=== PATIENT | female | born 1960 | race African-American/Black ===

== ENCOUNTER 2017-04-04 23:09 | Inpatient (IN) | payer MEDICAID ==
[~2017-04-04] VITALS: Ht 167.6 cm; Wt 140.2 kg
[~2017-04-04 23:09] MED LIST: ATEN50TA PO; CARI350T21 PO; CITA-73 PO; ESTR0.3T PO; IBUP800T24 PO; LISI-646 PO; LORA-352 PO; METF-316 PO; NAPR-607 PO; NOR10T PO; OMEP20TA44 PO; SIMV-13 PO; TRAZ50TA2 PO; ZOLP5TAB5 PO
[2017-04-05] MEDS ORDERED: SODIUM CHLORIDE 0.9% 1,000 ML IVB ONE (00:07)
[2017-04-05] MEDS ORDERED: ONDANSETRON HCL 4 MG/2 ML VIAL IV ONE ×2 (00:15→08:30)
[2017-04-05] MEDS ORDERED: LORazepam 2MG/ML-1ML VIAL IV ONE (01:00)
[2017-04-05] MEDS ORDERED: HYDROmorphone HCL 2 MG/ML VL IV ONE ×2 (01:45→09:15)
[2017-04-05] MEDS ORDERED: PROMETHAZINE HCL 25 MG/ML 1ML IV ONE (01:45)
[2017-04-05 01:57] LABS: Basophils # (auto) 0 uL; Basophils % (auto) 0.3 % (0.0-2.0); Eosinophils # (auto) 0.1 uL; Eosinophils % (auto) 0.8 % (0.0-7.0); Hematocrit 42.8 % (36.0-46.0); Hemoglobin 13.8 g/dL (12.2-16.2); Lymphocytes # (auto) 3.1 uL; Mean Corpuscular Hemoglobin 27.7 pg (28.0-32.0); Mean Corpuscular Hgb Conc. 32.2 g/dL (32.0-36.0); Mean Corpuscular Volume 85.9 fL (80.0-100.0); Mean Platelet Volume 9.5 fL (7.4-10.4); Monocytes # (auto) 0.3 uL; Monocytes % (auto) 2.8 % (0.0-12.0); Neutrophils # (auto) 6.6 uL; Neutrophils % (auto) 65.1 % (37.0-80.0); Platelet Count (auto) 240 10^3/uL (140-450); Red Cell Distribution Width 15.6 % (11.6-16.0); White Blood Cell 10.1 10^3/uL (4.4-10.8)
[2017-04-05 02:03] LABS: Urine Bilirubin Negative (Negative); Urine Blood TRACE /uL (Negative); Urine Color Yellow (Yellow); Urine Glucose Normal (Normal); Urine Ketone Negative (Negative); Urine Mucus FEW (None Seen); Urine Nitrite Negative (Negative); Urine RBC 5 /hpf (0 - 4); Urine Squamous Epithelial Cell FEW /hpf (<5); Urine Urobilinogen Normal (Negative)
[2017-04-05 02:11] LABS: INR 1.08 (0.9-1.15); Partial Thromboplastin Time 26.3 sec (22.64-33.71); Prothrombin Time 11.8 sec (9.37-12.3)
[2017-04-05 02:24] LABS: Albumin 3.4 g/dL (3.4-5.0); Anion Gap 12 (5-15); Aspartate Aminotransferase 43 U/L (15-37); BUN/Creatinine Ratio 14.3; Blood Urea Nitrogen 10 mg/dL (7-18); Calcium 9.1 mg/dL (8.5-10.1); Carbon Dioxide 25 mmol/L (21-32); Chloride 106 mmol/L (98-107); GFR African American 112 mL/min; GFR Non-African American 93 mL/min; Glucose 144 mg/dL (74-106); Magnesium 1.7 mg/dL (1.6-2.6); Potassium 3.8 mmol/L (3.5-5.1); Sodium 143 mmol/L (136-145)
[2017-04-05 02:29] LABS: Alkaline Phosphatase 183 U/L (45-117); Bilirubin, Total 0.4 mg/dL (0.2-1.0); Total Protein 7.8 g/dL (6.4-8.2)
[2017-04-05] MEDS ORDERED: ACETAMINOPHEN 500 MG TAB PO ONE (04:45)
[2017-04-05] MEDS ORDERED: SODIUM CHLORIDE 0.9% 1,000 ML IV ONE (08:36)
[2017-04-05] MEDS ORDERED: DIPHENOXYLATE W/ATROPINE 2.5 MG TAB PO ONE (08:45)
[2017-04-05] MEDS ORDERED: ONDANSETRON HCL 4 MG/2 ML VIAL IV PRN (08:45)
[2017-04-05] MEDS ORDERED: NITROGLYCERIN 0.4 MG SL TAB SL PRN (08:45)
[2017-04-05] MEDS ORDERED: TEMAZEPAM 15 MG CAP PO PRN (08:45)
[2017-04-05] MEDS ORDERED: ACETAMINOPHEN 325 MG TAB PO PRN (08:45)
[2017-04-05] MEDS ORDERED: MORPHINE SULF INJ 2 MG/ML SYRINGE 1ML IV PRN (08:45)
[2017-04-05] MEDS: MORPHINE SULF INJ 2 MG/ML SYRINGE 1ML IV PRN ×2 (08:58→12:43)
[2017-04-05] MEDS ORDERED: ZINC SULFATE 220 MG CAP PO SCH (10:00)
[2017-04-05] MEDS ORDERED: FAMOTIDINE 20 MG TAB PO SCH (10:00)
[2017-04-05] MEDS ORDERED: ENOXAPARIN SOD 30 MG/0.3 ML SYRINGE SC SCH (10:00)
[2017-04-05] MEDS ORDERED: ENOXAPARIN SOD 40 MG/0.4 ML SYRINGE SC SCH (10:00)
[2017-04-05] MEDS ORDERED: MULTIPLE VITAMIN TAB PO SCH (10:00)
[2017-04-05] MEDS ORDERED: ASCORBIC ACID 500 MG TAB PO SCH (10:00)
[2017-04-05 10:50] VITALS: BP 152/92
[2017-04-05 12:10] VITALS: BP 162/85
[2017-04-05] MEDS ORDERED: NALBUPHINE HCL 10 MG/1ml INJECTION IV ONE (13:15)
[2017-04-05] MEDS ORDERED: SODIUM CHLOR 0.9% PF (SALINE LOCK) 10ML VIAL IV SCH (14:00)
[2017-04-05] MEDS ORDERED: HYDROmorphone HCL 2 MG/ML VL IV PRN (14:15)
== END 2017-04-05 14:30 | disposition left against medical advice (07) | DRG 249 ==
LOC: ER 23:09 → EDSEX 23:09 → EDBD 23:09 → TELE 23:10 → TELE-EAST 04-05 11:02
PROVIDERS: ADMIT Emergency Medicine; ATTEND Emergency Medicine
DX: K52.9 Noninfective gastroenteritis and colitis, unspecified (principal); K76.0 Fatty (change of) liver, not elsewhere classified; I11.9 Hypertensive heart disease without heart failure; E66.01 Morbid (severe) obesity due to excess calories; D25.9 Leiomyoma of uterus, unspecified; R07.9 Chest pain, unspecified; E78.00 Pure hypercholesterolemia, unspecified; K40.20 Bilateral inguinal hernia, without obstruction or gangrene, not specified as recurrent; E78.5 Hyperlipidemia, unspecified; E11.9 Type 2 diabetes mellitus without complications; Z90.89 Acquired absence of other organs; Z82.49 Family history of ischemic heart disease and other diseases of the circulatory system; Z83.3 Family history of diabetes mellitus; Z88.1 Allergy status to other antibiotic agents; Z88.5 Allergy status to narcotic agent; Z88.8 Allergy status to other drugs, medicaments and biological substances; Z68.42 Body mass index [BMI] 45.0-49.9, adult
CPT/HCPCS: 36415; 51702; 71010; 74176; 80053; 80307; 81001; 83690; 83735; 84484; 85025; 85610; 85730; 87086; 93005; 93970; 96361; 96372; 96374; 96375; 96376; J2405

== ENCOUNTER 2023-10-24 23:01 | Inpatient (IN) | payer MEDICAID ==
[~2023-10-24] VITALS: Ht 172.7 cm; Wt 130.7 kg
[~2023-10-24 23:01] MED LIST changes: -CARI350T21 PO; +CARI350T27 PO; +IBUP-1456 PO; -IBUP800T24 PO; -LISI-646 PO; +LISI20TA56 PO; -LORA-352 PO; +LORA10TA6 PO; -METF-316 PO; +METF-372 PO; -NAPR-607 PO; +NAPR-746 PO; -SIMV-13 PO; +SIMV40TA18 PO; +TRAZ-227 PO; -TRAZ50TA2 PO
[2023-10-24 23:20] VITALS: PULSE 101; RESP 25; O2SAT 98
[2023-10-24 23:39] LABS: Basophils # (auto) 0 10 ^3/uL (0-0.2); Basophils % (auto) 0.4 % (0.0-2.0); Eosinophils # (auto) 0.2 10 ^3/uL (0-0.8); Eosinophils % (auto) 1.7 % (0.0-7.0); Hematocrit 29.8 % (36.0-46.0); Hemoglobin 8.9 g/dL (12.2-16.2); Lymphocytes # (auto) 2.5 10 ^3/uL (0.4-5.4); Lymphocytes % (auto) 24.4 % (10.0-50.0); Mean Corpuscular Hemoglobin 21.5 pg (28.0-32.0); Mean Corpuscular Hgb Conc. 29.9 g/dL (32.0-36.0); Mean Corpuscular Volume 71.7 fL (80.0-100.0); Monocytes # (auto) 0.8 10 ^3/uL (0-1.3); Monocytes % (auto) 7.6 % (0.0-12.0); Neutrophils # (auto) 6.7 10 ^3/uL (1.6-8.6); Neutrophils % (auto) 65.9 % (37.0-80.0); Red Blood Cells 4.15 10^6/uL (4.0-5.20); Red Cell Distribution Width 22.9 % (11.8-14.3); White Blood Cell 10.1 10^3/uL (4.4-10.8)
[2023-10-24] MEDS ORDERED: IPRATROPIUM BROM 0.5 MG/2.5ML INH SOL NEB ONE (23:45)
[2023-10-24] MEDS ORDERED: ALBUTEROL SULF 2.5 MG/0.5ML(0.5%) NEB SOLN NEB ONE (23:45)
[2023-10-24 23:53] LABS: INR 1.08 (0.9-1.15); Partial Thromboplastin Time 25.3 SEC (24.5-34.5); Prothrombin Time 11.3 sec (9.3-11.8)
[2023-10-24 23:57] LABS: Alanine Aminotransferase 16 U/L (7-40); Albumin 3.9 g/dL (3.2-4.8); Alkaline Phosphatase 175 U/L (46-116); Anion Gap 8 (5-15); Aspartate Aminotransferase 26 U/L (13-40); BUN/Creatinine Ratio 15.7 (10.0-20.0); Bilirubin, Total 0.6 mg/dL (0.2-1.0); Blood Urea Nitrogen 13 mg/dL (9-23); Calcium 8.4 mg/dL (8.7-10.4); Carbon Dioxide 26 mmol/L (20-30); Chloride 106 mmol/L (98-107); Glucose 136 mg/dL (74-106); Magnesium 1.7 mg/dL (1.6-2.6); Potassium 4.3 mmol/L (3.5-5.1); Sodium 140 mmol/L (136-145); Total Protein 6.6 g/dL (5.7-8.2)
[2023-10-25] VITALS (12 sets, daily range): BP systolic 132–140; BP diastolic 66–72; PULSE 94–110; RESP 18–22; TEMP 38.4; O2SAT 92–96
[2023-10-25 00:11] LABS: Base Excess 0.7 mmol/L (-2.0-2.0)
[2023-10-25] MEDS ORDERED: MORPHINE SULFATE 4 MG/ML SYR/VIAL IV ONE ×2 (01:15→03:30)
[2023-10-25] MEDS ORDERED: cefTRIAXone 1GM/50ML D5W 50 ML IV ONE (01:45)
[2023-10-25] MEDS ORDERED: AZITHROMYCIN 500MG/ 250ML 250 ML IV ONE (01:45)
[2023-10-25] MEDS ORDERED: FUROSEMIDE 40 MG/4 ML VIAL IV ONE (01:45)
[2023-10-25] MEDS ORDERED: HYDROmorphone HCL 2 MG/ML VL/or syr IV PRN (03:45)
[2023-10-25] MEDS ORDERED: NITROGLYCERIN 0.4 MG SL TAB SL PRN (03:45)
[2023-10-25] MEDS ORDERED: DEXTROSE (50%) 50ML SYRG IV PRN (03:45)
[2023-10-25] MEDS ORDERED: DOCUSATE SOD 100 MG CAP PO PRN (03:45)
[2023-10-25 03:51] LABS: Rapid Influenza A Negative (Negative); Rapid Influenza B Negative (Negative)
[2023-10-25 03:52] LABS: COVID19 ANTIGEN SOFIA FIA NEGATIVE (NEGATIVE)
[2023-10-25 04:39] LABS: Basophils # (auto) 0 10 ^3/uL (0-0.2); Basophils % (auto) 0.3 % (0.0-2.0); Eosinophils # (auto) 0 10 ^3/uL (0-0.8); Eosinophils % (auto) 0.4 % (0.0-7.0); Hematocrit 28.2 % (36.0-46.0); Hemoglobin 8.4 g/dL (12.2-16.2); Lymphocytes # (auto) 2.2 10 ^3/uL (0.4-5.4); Lymphocytes % (auto) 21.8 % (10.0-50.0); Mean Corpuscular Hemoglobin 21.7 pg (28.0-32.0); Mean Corpuscular Hgb Conc. 29.7 g/dL (32.0-36.0); Mean Corpuscular Volume 73.3 fL (80.0-100.0); Monocytes % (auto) 9.8 % (0.0-12.0); Neutrophils # (auto) 6.9 10 ^3/uL (1.6-8.6); Neutrophils % (auto) 67.7 % (37.0-80.0); Red Blood Cells 3.85 10^6/uL (4.0-5.20); White Blood Cell 10.2 10^3/uL (4.4-10.8)
[2023-10-25 04:40] LABS: Red Cell Distribution Width 23.1 % (11.8-14.3)
[2023-10-25 04:48] LABS: Alanine Aminotransferase 13 U/L (7-40); Albumin 3.8 g/dL (3.2-4.8); Alkaline Phosphatase 159 U/L (46-116); Anion Gap 6 (5-15); Aspartate Aminotransferase 18 U/L (13-40); Bilirubin, Total 0.6 mg/dL (0.2-1.0); Blood Urea Nitrogen 10 mg/dL (9-23); Calcium 8.5 mg/dL (8.7-10.4); Carbon Dioxide 27 mmol/L (20-30); Chloride 106 mmol/L (98-107); Glucose 123 mg/dL (74-106); Sodium 139 mmol/L (136-145); Total Protein 6.7 g/dL (5.7-8.2)
[2023-10-25] MEDS: SODIUM CHLOR 0.9% PF (SALINE LOCK) 10ML VIAL/SYR IV SCH ×3 (05:43→22:00)
[2023-10-25 06:00] LABS: Urine Bacteria NONE SEEN /hpf (None Seen); Urine Blood Negative /uL (Negative); Urine Clarity Clear (Clear); Urine Color Yellow (Yellow); Urine Protein, UAD Negative (Negative); Urine Specific Gravity 1.012 (1.001-1.035); Urine Urobilinogen Normal (Negative); Urine WBC <1 /hpf (0 - 5); Urine pH 5.5 (5.0-8.0)
[2023-10-25] MEDS: ACCU-CHEK COMFORT CURVE STRIP VI SCH ×4 (06:38→22:00)
[2023-10-25] MEDS: InsuLIN REG 1unit/0.01ml Soln (100units/ml) SC SCH ×4 (06:38→22:00)
[2023-10-25] MEDS: ACETAMINOPHEN 325 MG TAB PO PRN ×2 (08:23→22:35)
[2023-10-25] MEDS ORDERED: AZITHROMYCIN 500MG/ 250ML 250 ML IV SCH (10:00)
[2023-10-25] MEDS: FUROSEMIDE 40 MG/4 ML VIAL IV SCH (11:09)
[2023-10-25] MEDS: ENOXAPARIN SOD 40 MG/0.4 ML SYRINGE SC SCH (11:10)
[2023-10-25] MEDS ORDERED: AMLO1TAB22 PO (11:23)
[2023-10-25] MEDS: GABAPENTIN 400 MG CAP PO SCH ×2 (13:41→22:35)
[2023-10-25] MEDS: PIPERACILLIN-TAZOB 3.375GM 100 ML IV SCH ×2 (13:41→22:36)
[2023-10-25] MEDS ORDERED: IOHEXOL 350 MG/ML 100ML IJ ONE (13:54)
[2023-10-25] MEDS: HYDROmorphone HCL 2 MG/ML VL/or syr IV PRN ×3 (14:40→22:40)
[2023-10-25] MEDS: CARISOPRODOL 350 MG TAB PO PRN (16:29)
[2023-10-25] MEDS: MORPHINE SULF 30 mg ER tab PO SCH (22:36)
[2023-10-26] VITALS (11 sets, daily range): BP systolic 132–147; BP diastolic 60–84; PULSE 99–109; RESP 18–24; TEMP 98.4–99.8; O2SAT 92–98
[2023-10-26] MEDS: HYDROmorphone HCL 2 MG/ML VL/or syr IV PRN ×5 (02:45→20:58)
[2023-10-26] MEDS: SODIUM CHLOR 0.9% PF (SALINE LOCK) 10ML VIAL/SYR IV SCH ×3 (06:00→23:28)
[2023-10-26] MEDS: GABAPENTIN 400 MG CAP PO SCH ×3 (06:16→23:25)
[2023-10-26] MEDS: PIPERACILLIN-TAZOB 3.375GM 100 ML IV SCH ×3 (06:16→23:26)
[2023-10-26] MEDS: CARISOPRODOL 350 MG TAB PO PRN (06:27)
[2023-10-26] MEDS: InsuLIN REG 1unit/0.01ml Soln (100units/ml) SC SCH ×4 (06:44→22:00)
[2023-10-26] MEDS: ACCU-CHEK COMFORT CURVE STRIP VI SCH ×4 (06:44→23:29)
[2023-10-26 07:03] LABS: Basophils # (auto) 0 10 ^3/uL (0-0.2); Basophils % (auto) 0.3 % (0.0-2.0); Eosinophils # (auto) 0.1 10 ^3/uL (0-0.8); Hematocrit 26.4 % (36.0-46.0); Mean Corpuscular Hemoglobin 21.6 pg (28.0-32.0); Monocytes # (auto) 1.1 10 ^3/uL (0-1.3); Neutrophils # (auto) 4.4 10 ^3/uL (1.6-8.6); Nucleated Red Blood Cells % 0.1 %
[2023-10-26 07:05] LABS: Eosinophils % (auto) 1.4 % (0.0-7.0); Lymphocytes # (auto) 3.5 10 ^3/uL (0.4-5.4); Lymphocytes % (auto) 38.3 % (10.0-50.0); Mean Corpuscular Hgb Conc. 30.1 g/dL (32.0-36.0); Mean Corpuscular Volume 71.6 fL (80.0-100.0); Monocytes % (auto) 12.5 % (0.0-12.0); Neutrophils % (auto) 47.5 % (37.0-80.0); Red Blood Cells 3.69 10^6/uL (4.0-5.20); White Blood Cell 9.1 10^3/uL (4.4-10.8)
[2023-10-26 07:18] LABS: Red Cell Distribution Width 23.1 % (11.8-14.3)
[2023-10-26 07:40] LABS: Alanine Aminotransferase 10 U/L (7-40); Albumin 3.6 g/dL (3.2-4.8); Alkaline Phosphatase 137 U/L (46-116); Anion Gap 6 (5-15); Aspartate Aminotransferase 18 U/L (13-40); BUN/Creatinine Ratio 12.7 (10.0-20.0); Blood Urea Nitrogen 10 mg/dL (9-23); Calcium 8.8 mg/dL (8.5-10.1); Carbon Dioxide 30 mmol/L (20-30); Chloride 104 mmol/L (98-107); Glucose 102 mg/dL (74-106); Potassium 3.7 mmol/L (3.5-5.1); Sodium 140 mmol/L (136-145)
[2023-10-26 07:41] LABS: Bilirubin, Total 0.7 mg/dL (0.2-1.0); Total Protein 6.2 g/dL (5.7-8.2)
[2023-10-26 07:50] LABS: % Iron Saturation 8.2 % (15-50)
[2023-10-26] MEDS: ENOXAPARIN SOD 40 MG/0.4 ML SYRINGE SC SCH (09:19)
[2023-10-26] MEDS: MORPHINE SULF 30 mg ER tab PO SCH ×2 (09:20→23:25)
[2023-10-26] MEDS: AZITHROMYCIN 250 MG TAB PO SCH (09:20)
[2023-10-26] MEDS: FUROSEMIDE 40 MG/4 ML VIAL IV SCH (09:24)
[2023-10-26] MEDS ORDERED: LISI10TA34 PO (11:32)
[2023-10-26] MEDS ORDERED: OMEP-448 PO (11:34)
[2023-10-26] MEDS ORDERED: TRAZ-228 PO (11:35)
[2023-10-26] MEDS ORDERED: GABA-1308 PO (11:41)
[2023-10-26] MEDS ORDERED: GABA-1251 PO (11:45)
[2023-10-26] MEDS ORDERED: FLUT0.05 NAS (11:46)
[2023-10-26] MEDS ORDERED: FLUT50SP31 (12:02)
[2023-10-26] MEDS ORDERED: MORP30TA5 PO (12:06)
[2023-10-26] MEDS ORDERED: DICL1GEL72 EX (12:06)
[2023-10-26] MEDS ORDERED: MET25T PO (12:06)
[2023-10-26] MEDS ORDERED: MORP15TA PO (12:06)
[2023-10-26] MEDS: FERROUS SULFATE 325mg EC TAB PO SCH (17:55)
[2023-10-26] MEDS: ALBUTEROL SULF 2.5 MG/0.5ML(0.5%) NEB SOLN NEB PRN (18:26)
[2023-10-26] MEDS: IPRATROPIUM BROM 0.5 MG/2.5ML INH SOL NEB PRN (18:26)
[2023-10-27] VITALS (12 sets, daily range): BP systolic 134–149; BP diastolic 67–82; PULSE 76–103; RESP 17–24; TEMP 98.6–100.8; O2SAT 97–100
[2023-10-27] MEDS: MORPHINE SULF 30 mg ER tab PO SCH ×2 (02:56→23:23)
[2023-10-27] MEDS: HYDROmorphone HCL 2 MG/ML VL/or syr IV PRN ×5 (04:21→21:20)
[2023-10-27] MEDS: PIPERACILLIN-TAZOB 3.375GM 100 ML IV SCH ×3 (05:41→23:20)
[2023-10-27] MEDS: GABAPENTIN 400 MG CAP PO SCH ×3 (05:43→23:20)
[2023-10-27] MEDS: InsuLIN REG 1unit/0.01ml Soln (100units/ml) SC SCH ×4 (05:48→22:00)
[2023-10-27] MEDS: ACCU-CHEK COMFORT CURVE STRIP VI SCH ×4 (05:48→23:24)
[2023-10-27] MEDS: SODIUM CHLOR 0.9% PF (SALINE LOCK) 10ML VIAL/SYR IV SCH ×3 (05:49→23:28)
[2023-10-27 06:42] LABS: Basophils # (auto) 0 10 ^3/uL (0-0.2); Basophils % (auto) 0.5 % (0.0-2.0); Eosinophils # (auto) 0.3 10 ^3/uL (0-0.8); Mean Corpuscular Volume 71.7 fL (80.0-100.0); Monocytes # (auto) 0.9 10 ^3/uL (0-1.3); Neutrophils # (auto) 3.9 10 ^3/uL (1.6-8.6)
[2023-10-27 06:45] LABS: Eosinophils % (auto) 3.5 % (0.0-7.0); Hematocrit 26.7 % (36.0-46.0); Lymphocytes # (auto) 2.8 10 ^3/uL (0.4-5.4); Lymphocytes % (auto) 35.7 % (10.0-50.0); Mean Corpuscular Hemoglobin 21.6 pg (28.0-32.0); Mean Corpuscular Hgb Conc. 30.1 g/dL (32.0-36.0); Monocytes % (auto) 11.1 % (0.0-12.0); Neutrophils % (auto) 49.2 % (37.0-80.0); Nucleated Red Blood Cells % 0.1 %; Red Blood Cells 3.72 10^6/uL (4.0-5.20); Red Cell Distribution Width 22.6 % (11.8-14.3); White Blood Cell 7.9 10^3/uL (4.4-10.8)
[2023-10-27 07:10] LABS: Anion Gap 5 (5-15); Carbon Dioxide 31 mmol/L (20-30); Chloride 104 mmol/L (98-107); Potassium 3.8 mmol/L (3.5-5.1); Sodium 140 mmol/L (136-145)
[2023-10-27 07:11] LABS: Calcium 8.7 mg/dL (8.5-10.1)
[2023-10-27 07:16] LABS: BUN/Creatinine Ratio 11.4 (10.0-20.0); Blood Urea Nitrogen 8 mg/dL (9-23); Glucose 102 mg/dL (74-106)
[2023-10-27] MEDS: FUROSEMIDE 40 MG/4 ML VIAL IV SCH (09:14)
[2023-10-27] MEDS: AZITHROMYCIN 250 MG TAB PO SCH (09:15)
[2023-10-27] MEDS: ENOXAPARIN SOD 40 MG/0.4 ML SYRINGE SC SCH (09:15)
[2023-10-27] MEDS: FERROUS SULFATE 325mg EC TAB PO SCH ×2 (09:15→17:26)
[2023-10-27] MEDS: ALBUTEROL SULF 2.5 MG/0.5ML(0.5%) NEB SOLN NEB PRN (18:36)
[2023-10-27] MEDS: IPRATROPIUM BROM 0.5 MG/2.5ML INH SOL NEB PRN (18:36)
[2023-10-28] VITALS (11 sets, daily range): BP systolic 121–148; BP diastolic 66–82; PULSE 22–112; RESP 18–96; TEMP 98.9–102.9; O2SAT 94–100
[2023-10-28] MEDS: HYDROmorphone HCL 2 MG/ML VL/or syr IV PRN ×6 (01:27→20:23)
[2023-10-28] MEDS: PIPERACILLIN-TAZOB 3.375GM 100 ML IV SCH ×2 (05:40→15:24)
[2023-10-28] MEDS: GABAPENTIN 400 MG CAP PO SCH ×3 (05:42→21:27)
[2023-10-28] MEDS: ACCU-CHEK COMFORT CURVE STRIP VI SCH ×2 (05:42→11:42)
[2023-10-28] MEDS: ACETAMINOPHEN 325 MG TAB PO PRN ×3 (05:54→11:45)
[2023-10-28] MEDS: SODIUM CHLOR 0.9% PF (SALINE LOCK) 10ML VIAL/SYR IV SCH ×3 (05:55→21:27)
[2023-10-28] MEDS: InsuLIN REG 1unit/0.01ml Soln (100units/ml) SC SCH ×2 (06:04→11:30)
[2023-10-28] MEDS: FERROUS SULFATE 325mg EC TAB PO SCH ×2 (08:17→17:07)
[2023-10-28] MEDS: MORPHINE SULF 30 mg ER tab PO SCH ×2 (09:36→21:27)
[2023-10-28] MEDS: CARISOPRODOL 350 MG TAB PO PRN ×2 (09:36→18:02)
[2023-10-28] MEDS: AZITHROMYCIN 250 MG TAB PO SCH (09:36)
[2023-10-28] MEDS: FUROSEMIDE 40 MG/4 ML VIAL IV SCH (09:37)
[2023-10-28] MEDS: ENOXAPARIN SOD 40 MG/0.4 ML SYRINGE SC SCH (09:38)
[2023-10-28 14:11] LABS: Base Excess 7.3 mmol/L (-2.0-2.0)
[2023-10-28] MEDS ORDERED: PIPERACILLIN-TAZOB 3.375GM 100 ML IV SCH (20:00)
[2023-10-29] VITALS (10 sets, daily range): BP systolic 121–144; BP diastolic 57–88; PULSE 85–101; RESP 17–20; TEMP 99–99.9; O2SAT 97–99
[2023-10-29] MEDS: PIPERACILLIN-TAZOB 3.375GM 100 ML IV SCH ×4 (00:01→23:50)
[2023-10-29] MEDS: HYDROmorphone HCL 2 MG/ML VL/or syr IV PRN ×5 (01:08→19:43)
[2023-10-29] MEDS: CARISOPRODOL 350 MG TAB PO PRN ×3 (02:29→20:45)
[2023-10-29] MEDS: ACETAMINOPHEN 325 MG TAB PO PRN (02:40)
[2023-10-29] MEDS: SODIUM CHLOR 0.9% PF (SALINE LOCK) 10ML VIAL/SYR IV SCH ×3 (05:20→21:24)
[2023-10-29] MEDS: GABAPENTIN 400 MG CAP PO SCH ×3 (05:21→21:23)
[2023-10-29 06:09] LABS: Hemoglobin 9.4 g/dL (12.2-16.2); Mean Corpuscular Volume 72.5 fL (80.0-100.0)
[2023-10-29 06:13] LABS: Mean Corpuscular Hemoglobin 22.1 pg (28.0-32.0); Mean Corpuscular Hgb Conc. 30.5 g/dL (32.0-36.0); Red Blood Cells 4.28 10^6/uL (4.0-5.20); White Blood Cell 5.2 10^3/uL (4.4-10.8)
[2023-10-29 06:18] LABS: Anion Gap 6 (5-15); Carbon Dioxide 28 mmol/L (20-30); Chloride 100 mmol/L (98-107); Potassium 3.6 mmol/L (3.5-5.1)
[2023-10-29 06:19] LABS: Calcium 8.5 mg/dL (8.7-10.4); Red Cell Distribution Width 22.7 % (11.8-14.3)
[2023-10-29 06:21] LABS: Basophils % (manual) 0 (0.0-2.0); Blast Cells 0; Eosinophils % (manual) 0 (0-7); Promyelocytes % 0; Reactive Lymphocytes 0
[2023-10-29 06:24] LABS: BUN/Creatinine Ratio 9.8 (10.0-20.0); Blood Urea Nitrogen 8 mg/dL (9-23); Glucose 92 mg/dL (74-106)
[2023-10-29 06:33] LABS: Sodium 134 mmol/L (136-145)
[2023-10-29 08:10] LABS: Band Neutrophils % (manual) 19; Lymphocytes % (manual) 23 (10.0-50.0); Metamyelocytes % 3; Monocytes % (manual) 10 (0-12); Myelocytes % 3; Platelet Estimate Adequate
[2023-10-29 08:11] LABS: Anisocytosis Slight; Hypochromia Slight
[2023-10-29] MEDS: MORPHINE SULF 30 mg ER tab PO SCH ×2 (09:41→21:24)
[2023-10-29] MEDS: AZITHROMYCIN 250 MG TAB PO SCH (09:41)
[2023-10-29] MEDS: FERROUS SULFATE 325mg EC TAB PO SCH ×2 (09:41→15:57)
[2023-10-29] MEDS: FUROSEMIDE 40 MG/4 ML VIAL IV SCH (09:42)
[2023-10-29] MEDS: ENOXAPARIN SOD 40 MG/0.4 ML SYRINGE SC SCH (09:42)
[2023-10-29] MEDS ORDERED: diphenhdrAMINE HCL 50 MG/1 ML VL IV ONE (21:15)
[2023-10-29] MEDS ORDERED: diphenhdrAMINE HCL 50 MG/1 ML VL ONE (21:29)
[2023-10-30] VITALS (9 sets, daily range): BP systolic 116–136; BP diastolic 67–80; PULSE 77–101; RESP 16–20; TEMP 98.8–100; O2SAT 96–99
[2023-10-30] MEDS: HYDROmorphone HCL 2 MG/ML VL/or syr IV PRN ×5 (00:10→23:43)
[2023-10-30] MEDS: SODIUM CHLOR 0.9% PF (SALINE LOCK) 10ML VIAL/SYR IV SCH ×3 (05:34→21:45)
[2023-10-30] MEDS: GABAPENTIN 400 MG CAP PO SCH ×3 (05:34→21:46)
[2023-10-30] MEDS: PIPERACILLIN-TAZOB 3.375GM 100 ML IV SCH ×3 (09:04→23:54)
[2023-10-30] MEDS: AZITHROMYCIN 250 MG TAB PO SCH (09:05)
[2023-10-30] MEDS: FERROUS SULFATE 325mg EC TAB PO SCH ×2 (09:05→18:16)
[2023-10-30] MEDS: MORPHINE SULF 30 mg ER tab PO SCH ×2 (09:05→21:46)
[2023-10-30] MEDS: FUROSEMIDE 40 MG/4 ML VIAL IV SCH (09:05)
[2023-10-30] MEDS: ENOXAPARIN SOD 40 MG/0.4 ML SYRINGE SC SCH (09:06)
[2023-10-30] MEDS: CARISOPRODOL 350 MG TAB PO PRN ×2 (11:37→21:53)
[2023-10-31] VITALS (8 sets, daily range): BP systolic 128–149; BP diastolic 68–83; PULSE 65–111; RESP 17–21; TEMP 97.7–98.8; O2SAT 94–100
[2023-10-31] MEDS: HYDROmorphone HCL 2 MG/ML VL/or syr IV PRN ×4 (04:12→18:04)
[2023-10-31] MEDS: GABAPENTIN 400 MG CAP PO SCH ×3 (06:08→22:05)
[2023-10-31] MEDS: SODIUM CHLOR 0.9% PF (SALINE LOCK) 10ML VIAL/SYR IV SCH ×3 (06:08→22:10)
[2023-10-31] MEDS: FERROUS SULFATE 325mg EC TAB PO SCH ×2 (08:36→17:55)
[2023-10-31] MEDS: AZITHROMYCIN 250 MG TAB PO SCH (08:36)
[2023-10-31] MEDS: ENOXAPARIN SOD 40 MG/0.4 ML SYRINGE SC SCH (08:37)
[2023-10-31] MEDS: FUROSEMIDE 40 MG/4 ML VIAL IV SCH (08:37)
[2023-10-31 09:20] LABS: Hematocrit 32.9 % (36.0-46.0); Hemoglobin 9.9 g/dL (12.2-16.2); Mean Corpuscular Hgb Conc. 30.2 g/dL (32.0-36.0)
[2023-10-31 09:22] LABS: Mean Corpuscular Hemoglobin 21.9 pg (28.0-32.0); Mean Corpuscular Volume 72.7 fL (80.0-100.0); Red Blood Cells 4.53 10^6/uL (4.0-5.20); White Blood Cell 2.9 10^3/uL (4.4-10.8)
[2023-10-31 09:24] LABS: Band Neutrophils % (manual) 0; Basophils % (manual) 0 (0.0-2.0); Blast Cells 0; Metamyelocytes % 0; Myelocytes % 0; Promyelocytes % 0
[2023-10-31] MEDS: ONDANSETRON HCL 4 MG/2 ML VIAL IV PRN ×2 (09:32→18:10)
[2023-10-31] MEDS: MORPHINE SULF 30 mg ER tab PO SCH ×2 (09:32→22:06)
[2023-10-31 09:36] LABS: Chloride 104 mmol/L (98-107); Potassium 3.7 mmol/L (3.5-5.1); Sodium 138 mmol/L (136-145)
[2023-10-31 09:37] LABS: Anion Gap 6 (5-15); Carbon Dioxide 28 mmol/L (20-30)
[2023-10-31 09:42] LABS: Blood Urea Nitrogen 7 mg/dL (9-23); Glucose 105 mg/dL (74-106)
[2023-10-31] MEDS: PIPERACILLIN-TAZOB 3.375GM 100 ML IV SCH ×2 (09:46→17:56)
[2023-10-31 09:50] LABS: Eosinophils % (manual) 3 (0-7); Lymphocytes % (manual) 65 (10.0-50.0); Monocytes % (manual) 14 (0-12); Platelet Estimate Adequate; Reactive Lymphocytes 1
[2023-10-31] MEDS: CARISOPRODOL 350 MG TAB PO PRN ×2 (11:54→20:32)
[2023-10-31] MEDS ORDERED: DOXY-448 PO (12:11)
[2023-11-01] VITALS (9 sets, daily range): BP systolic 136–152; BP diastolic 63–79; PULSE 75–103; RESP 16–20; TEMP 98.1–98.7; O2SAT 96–99
[2023-11-01] MEDS: HYDROmorphone HCL 2 MG/ML VL/or syr IV PRN ×5 (00:33→18:23)
[2023-11-01] MEDS: PIPERACILLIN-TAZOB 3.375GM 100 ML IV SCH ×3 (00:38→16:00)
[2023-11-01] MEDS: CARISOPRODOL 350 MG TAB PO PRN ×2 (05:55→14:08)
[2023-11-01] MEDS: GABAPENTIN 400 MG CAP PO SCH ×3 (05:55→22:13)
[2023-11-01] MEDS: SODIUM CHLOR 0.9% PF (SALINE LOCK) 10ML VIAL/SYR IV SCH ×3 (05:56→22:17)
[2023-11-01] MEDS: ENOXAPARIN SOD 40 MG/0.4 ML SYRINGE SC SCH (09:47)
[2023-11-01] MEDS: AZITHROMYCIN 250 MG TAB PO SCH (09:47)
[2023-11-01] MEDS: FUROSEMIDE 40 MG/4 ML VIAL IV SCH (09:48)
[2023-11-01] MEDS: FERROUS SULFATE 325mg EC TAB PO SCH ×2 (09:48→18:22)
[2023-11-01] MEDS: MORPHINE SULF 30 mg ER tab PO SCH ×2 (11:05→22:13)
[2023-11-02] MEDS: CARISOPRODOL 350 MG TAB PO PRN ×2 (00:19→13:30)
[2023-11-02] MEDS: HYDROmorphone HCL 2 MG/ML VL/or syr IV PRN ×3 (00:41→10:07)
[2023-11-02] MEDS: GABAPENTIN 400 MG CAP PO SCH ×2 (05:25→13:30)
[2023-11-02 05:50] VITALS: BP 135/81; PULSE 81; RESP 21; TEMP 98.9; O2SAT 99
[2023-11-02] MEDS: SODIUM CHLOR 0.9% PF (SALINE LOCK) 10ML VIAL/SYR IV SCH ×2 (06:43→13:50)
[2023-11-02 08:00] VITALS: PULSE 80
[2023-11-02] MEDS: PIPERACILLIN-TAZOB 3.375GM 100 ML IV SCH ×2 (08:00)
[2023-11-02 09:00] VITALS: BP 144/79; PULSE 77; RESP 18; TEMP 98.2; O2SAT 97
[2023-11-02] MEDS: FUROSEMIDE 40 MG/4 ML VIAL IV SCH (10:00)
[2023-11-02] MEDS: FERROUS SULFATE 325mg EC TAB PO SCH (10:04)
[2023-11-02] MEDS: AZITHROMYCIN 250 MG TAB PO SCH (10:05)
[2023-11-02] MEDS: MORPHINE SULF 30 mg ER tab PO SCH (10:05)
[2023-11-02] MEDS: ENOXAPARIN SOD 40 MG/0.4 ML SYRINGE SC SCH (10:06)
[2023-11-02 13:00] VITALS: BP 152/78; PULSE 93; RESP 19
== END 2023-11-02 14:20 | disposition home or self-care (01) | DRG 137 ==
LOC: EDBD 23:01 → ER 23:01 → TELE 10-25 03:36 → TELE-EAST 10-25 09:22
PROVIDERS: ADMIT Nurse Practitioner Family; ATTEND Nurse Practitioner Acute Care
PROC: 5A09357 Assistance with Respiratory Ventilation, Less than 24 Consecutive Hours, Continuous Positive Airway Pressure (ICD-10-PCS; principal; 2023-10-24)
DX: J15.69 Pneumonia due to other Gram-negative bacteria (principal); J96.01 Acute respiratory failure with hypoxia; I50.21 Acute systolic (congestive) heart failure; E66.01 Morbid (severe) obesity due to excess calories; E78.5 Hyperlipidemia, unspecified; Z68.41 Body mass index [BMI] 40.0-44.9, adult; G89.4 Chronic pain syndrome; E11.9 Type 2 diabetes mellitus without complications; Z20.822 Contact with and (suspected) exposure to COVID-19; D25.9 Leiomyoma of uterus, unspecified; Z88.1 Allergy status to other antibiotic agents; I11.0 Hypertensive heart disease with heart failure
CPT/HCPCS: 36415; 36600; 71045; 71275; 74018; 74176; 76705; 80048; 80053; 81001; 82270; 82805; 82962; 83036; 83540; 83550; 83735; 83880; 84484; 85007; 85025; 85027; 85610; 85730; 87081; 87426; 87804; 93005; 93306; 94640; 94660; 97110; 97116; 97163; 97530; 99291; G0378; J1815; J2405; J2543

== ENCOUNTER 2025-10-02 15:08 | Inpatient (IN) | payer MEDICAID ==
[~2025-10-02] VITALS: Ht 180.3 cm; Wt 122.7 kg
[~2025-10-02 15:08] MED LIST changes: +AMLO1TAB22 PO; +CARI-578 PO; -CARI350T27 PO; +DICL1GEL72 EX; +DOXY100C79 PO; +FLUT50SP31; +GABA-1251 PO; +LISI10TA34 PO; -LISI20TA56 PO; +MET25T PO; +MORP15TA PO; +MORP30TA5 PO; +OMEP-448 PO; -OMEP20TA44 PO; -TRAZ-227 PO; +TRAZ-228 PO
[2025-10-02 17:23] VITALS: PULSE 75; RESP 13; O2SAT 99
[2025-10-02] MEDS: MORPHINE SULFATE 4 MG/ML SYR/VIAL IV ONE (17:33)
--- NOTE | 2025-10-02 17:39 | DVH ---
CHEST RADIOGRAPH Indication: weakness Technique: Single frontal view of the chest was obtained. Comparison: XY CHEST PORTABLE on DOS: 10/29/23 Findings: Mild pulmonary vascular congestion. No significant pleural effusion. No pneumothorax. Stable cardiomediastinal silhouette. IMPRESSION: Mild pulmonary vascular congestion.
[2025-10-02] MEDS: ONDANSETRON HCL 4 MG/2 ML VIAL IV ONE (17:40)
[2025-10-02] MEDS: KETOROLAC TROMETH 30 MG/ML 1ML VIAL IV ONE (17:41)
[2025-10-02 17:52] LABS: Hematocrit 42.2 % (36.0-46.0); Hemoglobin 13.6 g/dL (12.2-16.2); Mean Corpuscular Hemoglobin 27.8 pg (28.0-32.0); Mean Corpuscular Volume 86.3 fL (80.0-100.0); Nucleated Red Blood Cells % 0.0 %
[2025-10-02 18:10] LABS: Chloride 106 mmol/L (98-107); Potassium 4.3 mmol/L (3.5-5.1); Sodium 143 mmol/L (136-145)
[2025-10-02 18:11] LABS: Anion Gap 10 (5-15); Carbon Dioxide 27 mmol/L (20-31)
[2025-10-02 18:12] LABS: Calcium 9.3 mg/dL (8.7-10.4)
[2025-10-02 18:16] LABS: BUN/Creatinine Ratio 18.2 (10.0-20.0); Blood Urea Nitrogen 14 mg/dL (9-23); Glucose 102 mg/dL (74-106)
--- NOTE | 2025-10-02 18:39 | ED.PDOC ---
History of Present Illness HPI Comments 64F presents via EMS for one day of intractable back pain, and worsening dysuria. Patient reports she is so weak she can not walk. She denies any fever chills nausea vomiting or diarrhea. Chief Complaint: Body Pain Time Seen by MD: 15:50 Primary Care Provider: DENISHA Allergies: Coded Allergies: Cephalexin (Verified Allergy, Intermediate, 12/18/11) Codeine (Verified Allergy, Unknown, 06/29/14) Propoxyphene (Verified Allergy, Unknown, 06/30/14) Home Meds Active Scripts Doxycycline (Monohydrate) (Doxycycline) 100 Mg Cap, 100 MG PO BID for 7 Days, #14 CAP Prov:[employer] 10/31/23 Reported Medications Diclofenac Sodium (Topical) (Arthritis Pain Reliever) 1 % Gel, 1 % EX BID, GEL Apply 2 grams to affected areas twice daily 10/26/23 Morphine Sulfate (Morphine Sulfate) 15 Mg Tab, 1 TAB PO Q8HPRN, #120 TAB 10/26/23 Morphine Sulfate (Morphine Sulfate Cr) 30 Mg Tab, 30 MG PO BID, TAB 10/26/23 Metoprolol Tartrate (Lopressor) 25 Mg Tb, 25 MG PO Q12HR, TAB 0 Refills 10/26/23 Fluticasone Propionate (Nasal) (Fluticasone Propionate Na) 50 Mcg/Act Spr, 50 MCG NA BID, SPR Apply 1 spray by nasal route twice daily 10/26/23 Gabapentin (Gabapentin) 400 Mg Cap, 2 CAP PO TID, CAP Take 2 capsules three times daily 10/26/23 Trazodone Hcl (Trazodone Hcl) 100 Mg Tab, 100 MG PO HS PRN for FOR INSOMNIA, MG Take 2 tabs at bedtime as needed for primary insomnia 10/26/23 Omeprazole (Omeprazole Dr) 40 Mg Cap, 40 MG PO DAILY, CAP 10/26/23 Lisinopril (Lisinopril) 10 Mg Tab, 10 MG PO BID, TAB 10/26/23 Amlodipine Besylate (Amlodipine Besylate) 5 Mg Tab, 10 MG PO DAILY for 30 Days, MG 10/25/23 Estrogens, Conjugated (PREMARIN TABLET) 0.3 Mg Tb, 0.45-1.5 MG PO HS 06/30/14 Ibuprofen (Ibuprofen) 800 Mg Tab, 800 MG PO Q6HP PRN for MODERATE PAIN, TAB 06/30/14 Loratadine (Loratadine) 10 Mg Tab, 10 MG PO DAILY, TAB 06/30/14 Simvastatin (Simvastatin) 40 Mg Tab, 40 MG PO HS, TAB 06/30/14 Carisoprodol (Carisoprodol) 350 Mg Tab, 350 MG PO TIDP PRN for FOR MUSCLE SPASM, TAB 06/30/14 Hydrocodone-Acetaminophen (Encampment 10/325MG) 1 Tab Tb, 1 TAB PO TID for MODERATE PAIN, TAB 06/30/14 Naproxen (Naproxen) 500 Mg Tab, 500 MG PO BID, TAB 06/30/14 Zolpidem Tartrate (Zolpidem Tartrate) 5 Mg Tab, 5 MG PO HS PRN for FOR INSOMNIA, TAB 06/30/14 Metformin Hydrochloride (Metformin Hcl) 1,000 Mg Tab, 1000 MG PO BID, TAB 06/30/14 Citalopram Hydrobromide (Citalopram Hydrobromide) 40 Mg Tab, 40 MG PO DAILY, TAB 06/30/14 Atenolol (Atenolol) 50 Mg Tab, 50 MG PO BID, TAB 06/30/14 Mode of Arrival: EMS Past Medical History PAST MEDICAL HISTORY: DM, High Lipids, HTN Surgical History: Tonsillectomy MANAGER EDITORIAL History: No Pertinent MANAGER EDITORIAL History Family History Family History: No family hx of DM, No family hx of Heart gilmer, No family hx of HTN, No family hx ofKidney gilmer Social History Smoker: Non-Smoker Alcohol: Denies ETOH Use Drugs: Denies Drug Use Lives In: Home Physical Exam General Appearance: Mild Distress HEENT: Pharynx Normal Neck: Normal Inspection Respiratory: No Respiratory Distress Cardiovascular: Tachycardia Breast Exam: Deferred Gastrointestinal: Non Tender Genitalia: Deferred Pelvic: Deferred Rectal: Deferred Extremities: Pedal edema Neurologic: No Motor Deficits Cerebellar Function: NOT DONE Reflexes: NOT DONE Skin: Normal Color Lymphatic: NOT DONE Was a procedure done? Was a procedure done?: No Differential Dx Considerations may include: ACS, CVA, viral syndrome, electrolyte abnormality, infectious etiology, UTI X-Ray, Labs, Meds, VS Vital Signs Date Time Temp Pulse Resp B/P (MAP) Pulse Ox O2 Delivery O2 Flow Rate FiO2 10/02/25 18:00 72 17 148/76 (100) 98 11/19/25 16:25 98.5 76 12 149/71 (97) 99 98.5 10/02/25 16:22 75 10/02/25 15:18 98.5 72 16 163/97 97 98.5 Lab Test 10/02/25 18:06 10/02/25 17:13 Range/Units Troponin I High Sensitivity Pending 3 L </=34 ng/L White Blood Count 7.8 4.4-10.8 10^3/uL Red Blood Count 4.90 4.0-5.20 10^6/uL Hemoglobin 13.6 12.2-16.2 g/dL Hematocrit 42.2 36.0-46.0 % Mean Corpuscular Volume 86.3 80.0-100.0 fL Mean Corpuscular Hemoglobin 27.8 L 28.0-32.0 pg Mean Corpuscular Hemoglobin Concent 32.3 32.0-36.0 g/dL Red Cell Distribution Width 14.9 H 11.8-14.3 % Platelet Count 176 140-450 10^3/uL Mean Platelet Volume 8.7 6.9-10.8 fL Neutrophils (%) (Auto) 50.1 37.0-80.0 % Lymphocytes (%) (Auto) 40.2 10.0-50.0 % Monocytes (%) (Auto) 8.1 0.0-12.0 % Eosinophils (%) (Auto) 1.0 0.0-7.0 % Basophils (%) (Auto) 0.6 0.0-2.0 % Neutrophils # (Auto) 3.9 1.6-8.6 10 ^3/uL Lymphocytes # (Auto) 3.1 0.4-5.4 10 ^3/uL Monocytes # (Auto) 0.6 0-1.3 10 ^3/uL Eosinophils # (Auto) 0.1 0-0.8 10 ^3/uL Basophils # (Auto) 0.1 0-0.2 10 ^3/uL Nucleated Red Blood Cells 0.0 % Sodium Level 143 136-145 mmol/L Potassium Level 4.3 3.5-5.1 mmol/L Chloride Level 106 98-107 mmol/L Carbon Dioxide Level 27 20-31 mmol/L Anion Gap 10 5-15 Blood Urea Nitrogen 14 9-23 mg/dL Creatinine 0.77 0.550-1.02 mg/dL Glomerular Filtration Rate Calc 87 >90 mL/min BUN/Creatinine Ratio 18.2 10.0-20.0 Serum Glucose 102 74-106 mg/dL Lactic Acid Level 1.4 0.4-2.0 mmol/L Calcium Level 9.3 8.7-10.4 mg/dL Current Medications Medications (Trade) Dose Ordered Sig/Graham Route Start Time Stop Time Status Last Admin Ondansetron HCl (Zofran) 4 mg ONCE ONCE IV 10/02/25 16:45 10/02/25 16:47 DC 10/02/25 17:40 Ketorolac Tromethamine (Toradol Injection) 15 mg ONCE ONCE IV 10/02/25 17:45 10/02/25 17:46 DC 10/02/25 17:41 Time of 1ST Reevaluation: 18:38 Reevaluation 1ST: Improved Patient Education/Counseling: Diagnosis, Treatment Family Education/Counseling: No Family Present SEPSIS Sepsis Screen Date sepsis recognized/suspect: Oct 02, 2025 Time Sepsis recognized/suspect: 1517 Recent Procedure: No On Antibiotic Therapy: No Respiratory Rate >20: No Heart Rate >90: No Temp<36 C (96.8 F) or >38.3 C: No SBP <90 or MAP <65 mmHG: No New Acute Mental Status Change: No Is the patient on CPAP, BIPAP,: No Physician Orders Urinalysis (10/02/25 16:45) Chest Portable (10/02/25 16:45) Electrocardigram (10/02/25 16:45) Blood Culture (10/02/25 16:45) Troponin-I Hs (10/02/25 17:45) Troponin-I Hs (10/02/25 19:45) Electrocardigram (10/02/25 17:45) Electrocardigram (10/02/25 19:45) Nichole Catheters (10/02/25 ) Urine Bacterial Culture (10/02/25 18:24) Vital Signs Date Time Temp Pulse Resp B/P (MAP) Pulse Ox O2 Delivery O2 Flow Rate FiO2 10/02/25 18:00 72 17 148/76 (100) 98 10/02/25 16:25 98.5 76 12 149/71 (97) 99 98.5 10/02/25 16:22 75 10/02/25 15:18 98.5 72 16 163/97 97 98.5 Laboratory Tests Test 10/02/25 17:13 Lactic Acid Level 1.4 mmol/L (0.4-2.0) White Blood Count 7.8 10^3/uL (4.4-10.8) Medications Medications Dose Ordered Sig/Graham Route Start Time Stop Time Status Last Admin Dose Admin Ketorolac Tromethamine 15 mg ONCE ONCE IV 10/02/25 17:45 10/02/25 17:46 DC 10/02/25 17:41 Ondansetron HCl 4 mg ONCE ONCE IV 10/02/25 16:45 10/02/25 16:47 DC 10/02/25 17:40 Departure 1 Departure Time of Disposition: 18:39 (Patient with a intractable pain and multiple episodes of near-syncope.) Impression: Primary Impression: Near syncope Additional Impressions: Intractable pain Dysuria Disposition: ADMITTED INPATIENT Admit to: [facility] Condition: Guarded Critical Care Note Critical Care Time?: No Stability Stability form required: No Heart Score Heart Score: Heart Score Response (Comments) Value History N/A 0 EKG N/A 0 Age N/A 0 Risk Factors N/A 0 Troponin N/A 0 Total 0 AZEEM LI MD Oct 02, 2025 18:39
[2025-10-02] MEDS: KETAMINE 50mg/ML 10ml Vial (500mg/10ml) IV ONE (19:33)
[2025-10-02 19:35] VITALS: PULSE 68; RESP 20; O2SAT 98
[2025-10-02 19:42] LABS: Urine Protein, UAD Negative (Negative)
[2025-10-02] MEDS: LORazepam 2MG/ML-1ML VIAL IV ONE (20:10)
[2025-10-02] MEDS: HALOPERIDOL LACTATE 5 MG/ML INJ VIAL IV ONE (20:10)
[2025-10-02] MEDS ORDERED: NITROGLYCERIN 0.4 MG SL TAB SL PRN (20:45)
[2025-10-02] MEDS ORDERED: ACETAMINOPHEN 325 MG TAB PO PRN (20:45)
[2025-10-02] MEDS ORDERED: MORPHINE SULFATE INJ 2 MG/ml SYRG IV PRN (20:45)
[2025-10-02] MEDS: METOPROLOL SUCCINATE XL 50 MG TAB PO ONE (21:05)
[2025-10-02] MEDS: LISINOPRIL 20 MG TAB PO ONE (21:10)
[2025-10-02] MEDS: FUROSEMIDE 20 MG/2 ML VIAL IV ONE (21:11)
--- NOTE | 2025-10-02 21:17 | DVHHPRES ---
History of Present Illness Resident Creating Document: RIKI RED RESIDENT History of Present Illness This is a 64-year-old female with past medical history of DM2, HLD, HTN, fibromyalgia, spinal stenosis, CHF with preserved EF 65% on 2022, use 2 L home oxygen, chronic pain syndrome, uterine fibroid came to ER with a complaint of lower abdominal pain and back home associated with occasional dizziness, nausea, decreased appetite, fatigue and generalized weakness. Patient denies any stroke or residual weakness, use walker at home during ambulation. 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 Patient was agitated in ER and received Haldol and lorazepam. Patient is a poor historian likely medication induced, will obtain more information when stable. H/o spinal surgery 5 years back due to severe spinal stenosis. Spoke with Mr. Arnie Smith([phone])-patient lost her dog around 5:00 a.m. and since then her symptoms worsen. Never follow-up with Cardiology. Unsure angiogram but stress test done few years back which came back negative. Past medical history: Above Past surgical history: Spinal surgery 5 years back, cholecystectomy Family history: Nothing contributory Social history: Denies smoking or illicit drug. EtOH use, last drink yesterday. Lives in home with sister. PCP: Colleen Corea. Home medication: On EMR. Review of Systems Constitutional: Yes: Weakness, Malaise; No: Fever, Chills, Sweats, Other Eyes: No: Pain, Vision change, Conjunctivae inflammation, Eyelid inflammation, Other, Redness ENT: No: Ear pain, Ear discharge, Nose pain, Nose discharge, Nose congestion, Mouth pain, Mouth swelling, Throat pain, Throat swelling, Other Respiratory: Other (Mild crackles bilateral basal area lungs); No: Cough, Dry, Shortness of breath, SOB with excertion, Wheezing, Hemoptysis, Pleuritic Pain, Sputum, Wheezing Cardiovascular: No: Chest Pain, Palpitations, Orthopnea, Paroxysmal Noc. Dyspnea, Edema, Lt Headedness, Other Gastrointestinal: Nausea, Abdominal Pain; No: Vomiting, Diarrhea, Constipation, Melena, Hematochezia, Other Genitourinary: Dysuria; No Frequency, No Incontinence, No Hematuria, No Retention; Other (Lower back pain) Musculoskeletal: No: other, neck pain, shoulder pain, arm pain, back pain, hand pain, leg pain, foot pain Skin: No: Rash, Lesions, Jaundice, Bruising, Other Neurological: Other (Gait instability) Allergies: Coded Allergies: Cephalexin (Verified Allergy, Intermediate, 12/18/11) Codeine (Verified Allergy, Unknown, 06/29/14) Propoxyphene (Verified Allergy, Unknown, 06/30/14) Medications Current Medications Medications Dose Ordered Sig/Graham Route Start Time Stop Time Status Last Admin Dose Admin Ondansetron HCl 4 mg Q4HP PRN IV 10/02/25 20:45 UNV Enoxaparin Sodium 40 mg DAILY SC 10/03/25 10:00 UNV Acetaminophen 650 mg Q6HP PRN PO 10/02/25 20:45 Nitroglycerin 0.4 mg Q5MINP PRN SL 10/02/25 20:45 Morphine Sulfate 2 mg Q30M PRN IV 10/02/25 20:45 UNV Atorvastatin Calcium 40 mg HS PO 10/02/25 22:00 UNV Metoprolol Succinate 50 mg DAILY PO 10/03/25 10:00 UNV Lisinopril 20 mg DAILY PO 10/03/25 10:00 UNV Furosemide 20 mg DAILY IV 10/03/25 10:00 UNV Gabapentin 100 mg TID PO 10/02/25 22:00 UNV Exam Vital Signs Vital Signs Date Time Temp Pulse Resp B/P (MAP) Pulse Ox O2 Delivery O2 Flow Rate FiO2 10/02/25 19:35 68 20 98 Nasal Cannula* 2 28 10/02/25 19:35 98.1 148/78 (101) 98.1 General Appearance: Alert, Oriented X3, moderate distress HEENT: Atraumatic, PERRLA Respiratory: Clear to auscultation, Normal air movement, Other (Mild crackles basal area of both lungs) Cardiovascular: Regular rate, Normal S1, Normal S2, No murmurs Abdominal: Normal bowel sounds, Soft, Other (Lower abdomen tender on deep palpation) Extremities: No clubbing, No cyanosis, No edema Skin: No rashes, No breakdown Neuro: Strength at 5/5 X4 ext, Sensation intact, Other Labs/Xrays Labs Test 10/02/25 19:54 10/02/25 17:47 10/02/25 17:26 10/02/25 17:13 Range/Units Troponin I High Sensitivity 5 </=34 ng/L Urine Color Yellow Yellow Urine Clarity Clear Clear Urine pH 7.5 5.0-9.0 Urine Specific [place] 1.017 1.001-1.035 Urine Protein Negative Negative Urine Ketones Negative Negative Urine Blood Negative Negative /uL Urine Nitrite Negative Negative Urine Bilirubin Negative Negative Urine Urobilinogen 3 H Negative mg/dL Urine Leukocyte Esterase Negative Negative /uL Urine RBC <1 0 - 4 /hpf Urine Microscopic WBC 1 0-5 /HPF Urine Squamous Epithelial Cells None seen <5 /hpf Urine Bacteria None seen None Seen /hpf Urine Glucose Normal Normal mg/dL White Blood Count 7.8 4.4-10.8 10^3/uL Red Blood Count 4.90 4.0-5.20 10^6/uL Hemoglobin 13.6 12.2-16.2 g/dL Hematocrit 42.2 36.0-46.0 % Mean Corpuscular Volume 86.3 80.0-100.0 fL Mean Corpuscular Hemoglobin 27.8 L 28.0-32.0 pg Mean Corpuscular Hemoglobin Concent 32.3 32.0-36.0 g/dL Red Cell Distribution Width 14.9 H 11.8-14.3 % Platelet Count 176 140-450 10^3/uL Mean Platelet Volume 8.7 6.9-10.8 fL Neutrophils (%) (Auto) 50.1 37.0-80.0 % Lymphocytes (%) (Auto) 40.2 10.0-50.0 % Monocytes (%) (Auto) 8.1 0.0-12.0 % Eosinophils (%) (Auto) 1.0 0.0-7.0 % Basophils (%) (Auto) 0.6 0.0-2.0 % Neutrophils # (Auto) 3.9 1.6-8.6 10 ^3/uL Lymphocytes # (Auto) 3.1 0.4-5.4 10 ^3/uL Monocytes # (Auto) 0.6 0-1.3 10 ^3/uL Eosinophils # (Auto) 0.1 0-0.8 10 ^3/uL Basophils # (Auto) 0.1 0-0.2 10 ^3/uL Nucleated Red Blood Cells 0.0 % Sodium Level 143 136-145 mmol/L Potassium Level 4.3 3.5-5.1 mmol/L Chloride Level 106 98-107 mmol/L Carbon Dioxide Level 27 20-31 mmol/L Anion Gap 10 5-15 Blood Urea Nitrogen 14 9-23 mg/dL Creatinine 0.77 0.550-1.02 mg/dL Glomerular Filtration Rate Calc 87 >90 mL/min BUN/Creatinine Ratio 18.2 10.0-20.0 Serum Glucose 102 74-106 mg/dL Lactic Acid Level 1.4 0.4-2.0 mmol/L Calcium Level 9.3 8.7-10.4 mg/dL SEPSIS Sepsis Screen Date sepsis recognized/suspect: Oct 02, 2025 Time Sepsis recognized/suspect: 1940 Recent Procedure: No On Antibiotic Therapy: No Respiratory Rate >20: No Heart Rate >90: No Temp<36 C (96.8 F) or >38.3 C: No SBP <90 or MAP <65 mmHG: No New Acute Mental Status Change: No Is the patient on CPAP, BIPAP,: No Physician Orders Chest Portable (10/02/25 16:45) Electrocardigram (10/02/25 16:45) Blood Culture (10/02/25 16:45) Electrocardigram (10/02/25 17:45) Electrocardigram (10/02/25 19:45) Nichole Catheters (10/02/25 ) Urine Bacterial Culture (10/02/25 18:24) Admit (10/02/25 20:43) Code Status (10/02/25 20:43) Oxygen Per Hour (10/02/25 20:43) Ondansetron Hcl (Zofran) (10/02/25 20:45) Enoxaparin Sodium (Lovenox) (10/03/25 10:00) Cardiac Diet-2gna,Lofat,Lochol (10/03/25 Breakfast) Echo 2d Mode Cardiac Dop (10/02/25 20:43) Acetaminophen Tablet (Tylenol Tablet) (10/02/25 20:45) Nitroglycerin Sublingual (Ntrostat Subli (10/02/25 20:45) Morphine Sulfate Injection (10/02/25 20:45) Oxygen By Nasal Cannula (10/02/25 20:43) Stat Ekg For Chest Pain (10/02/25 20:43) Notify Md Of Changes From Base (10/02/25 20:43) Care Navigator For 24 Hours (10/02/25 20:43) Emergency Dysrhythmia Protocol (10/02/25 20:43) Rhythm Strips Once Every Shift (10/02/25 20:43) Drug Screen (10/02/25 20:43) Blood Alcohol (10/02/25 20:43) Covid19 Antigen Joan (10/02/25 ) B-Type Natriuretic Peptide (10/02/25 20:43) Atorvastatin (Lipitor) (10/02/25 22:00) Metoprolol Xl Succinate (Toprol Xl) (10/03/25 10:00) Lisinopril Tablet (Zestril Tablet) (10/02/25 20:45) Lisinopril Tablet (Zestril Tablet) (10/03/25 10:00) Furosemide Injection (Lasix Injection) (10/02/25 21:00) Furosemide Injection (Lasix Injection) (10/03/25 10:00) Gabapentin Capsule (Neurontin Capsule) (10/02/25 22:00) Vital Signs Date Time Temp Pulse Resp B/P (MAP) Pulse Ox O2 Delivery O2 Flow Rate FiO2 10/02/25 19:35 68 20 98 Nasal Cannula* 2 28 10/02/25 19:35 98.1 68 20 148/78 (101) 98 98.1 10/02/25 18:00 72 17 148/76 (100) 98 10/02/25 17:23 99.0 75 13 163/62 (95) 99 99.0 10/02/25 17:23 75 13 99 Nasal Cannula* 2 28 10/02/25 16:25 98.5 76 12 149/71 (97) 99 98.5 10/02/25 16:22 75 10/02/25 15:18 98.5 72 16 163/97 97 98.5 Laboratory Tests Test 10/02/25 17:13 Lactic Acid Level 1.4 mmol/L (0.4-2.0) White Blood Count 7.8 10^3/uL (4.4-10.8) Medications Medications Dose Ordered Sig/Graham Route Start Time Stop Time Status Last Admin Dose Admin Haloperidol Lactate 1 mg ONCE ONCE IV 10/02/25 19:45 10/02/25 19:48 DC 10/02/25 20:10 1 MG Ketorolac Tromethamine 15 mg ONCE ONCE IV 10/02/25 17:45 10/02/25 17:46 DC 10/02/25 17:41 15 MG Lorazepam 1 mg ONCE ONCE IV 10/02/25 19:45 10/02/25 19:48 DC 10/02/25 20:10 1 MG Ondansetron HCl 4 mg ONCE ONCE IV 10/02/25 16:45 10/02/25 16:47 DC 10/02/25 17:40 4 MG Assessment/Plan Assessment/Plan Acute diastolic/systolic congestive heart heart failure Hypertensive heart disease Hyperlipidemia Blood pressure: 163/97 and repeated 148/78, Currently on 2L O2 via NC. Saturation 94% Troponin : 3> 4 Blood culture Lactic acid 1.4 X-ray chest: Mild pulmonary vascular congestion. ECHO ON 10/26/2023-Hyperdynamic left ventricular systolic function with estimated ejection fraction of 65% Echocardiogram order today EKG Lasix Amlodipine and lisinopril Atorvastatin BNP Type 2 diabetes mellitus Insulin sliding scale Carbohydrate consistent diet HbA1c Chronic pain syndrome Fibromyalgia Low-back pain Dysuria likely urinary tract infection Gabapentin UA, urine culture UDS H/o spinal surgery secondary to spinal stenosis Gait instability Pain management Fall precaution Alcohol use disorder Last drink day before admission Alcohol level Insomnia/depression Trazodone Diet: Carbohydrate consistent diet GI prophylaxis: Pantoprazole DVT prophylaxis: Lovenox Goals of care discussion. More than 29 minute spent with patient. Full code status. Case discussed with Dr. Villavicencio. Plan discussed with: Patient, Other (Nurse) My Orders Orders - RIKI RED RESIDENT Procedure Category Date Status Time Admit ADMIT 10/02/25 Transmitted 20:43 Code Status CODE 10/02/25 Transmitted 20:43 Oxygen Per Hour RT 10/02/25 Transmitted 20:43 Ondansetron Hcl PHA 10/02/25 Logged (Zofran) 20:45 Enoxaparin Sodium PHA 10/03/25 Logged (Lovenox) 10:00 Cardiac DIET 10/03/25 Transmitted Diet-2gna,Lofat,Lochol Breakfast Echo 2d Mode Cardiac US 10/02/25 Logged DOP 20:43 Acetaminophen Tablet PHA 10/02/25 In Process (Tylenol Tablet) 20:45 Nitroglycerin PHA 10/02/25 In Process Sublingual (Ntrostat 20:45 Morphine Sulfate PHA 10/02/25 Logged Injection 20:45 Oxygen By Nasal RT 10/02/25 Transmitted Cannula 20:43 Stat Ekg For Chest [facility] 10/02/25 In Process Pain 20:43 Notify Of Changes [facility] 10/02/25 In Process From Base 20:43 Care Navigator For [facility] 10/02/25 In Process 24 Hours 20:43 Emergency Dysrhythmia [facility] 10/02/25 In Process Protocol 20:43 Rhythm Strips Once [facility] 10/02/25 In Process Every Shift 20:43 Drug Screen LAB 10/02/25 Logged 20:43 Blood Alcohol LAB 10/02/25 In Process 20:43 Covid19 Antigen Joan LAB 10/02/25 Logged B-Type Natriuretic LAB 10/02/25 In Process Peptide 20:43 Atorvastatin (Lipitor) PHA 10/02/25 Logged 22:00 Metoprolol Xl PHA 10/03/25 Logged Succinate (Toprol Xl) 10:00 Lisinopril Tablet PHA 10/02/25 In Process (Zestril Tablet) 20:45 Lisinopril Tablet PHA 10/03/25 Logged (Zestril Tablet) 10:00 Furosemide Injection PHA 10/02/25 Logged (Lasix Injection) 21:00 Furosemide Injection PHA 10/03/25 Logged (Lasix Injection) 10:00 Gabapentin Capsule PHA 10/02/25 Logged (Neurontin Capsule) 22:00 Date of Service: Oct 02, 2025 Billing Provider: OLGA LIDIA VILLAVICENCIO MD Common Visit Codes: 92882-[id number] INP/OBS CARE (HIGH) Secondary Visit Codes: 98185-[id number] CARE PLAN 30 MINUTES RIKI RED RESIDENT Oct 02, 2025 21:17
[2025-10-02] MEDS: ATORVASTATIN 20 MG TAB PO SCH (21:37)
[2025-10-02] MEDS: GABAPENTIN 100 MG CAP PO SCH (21:38)
[2025-10-02] MEDS ORDERED: DEXTROSE (50%) 50ML SYRG IV PRN (22:45)
[2025-10-03] MEDS: GABAPENTIN 400 MG CAP PO ONE (00:16)
[2025-10-03] MEDS: ONDANSETRON HCL 4 MG/2 ML VIAL IV PRN (04:20)
[2025-10-03] MEDS: LISINOPRIL 20 MG TAB PO SCH (04:45)
[2025-10-03] MEDS: hydrALAZINE HCL 20 MG/ML VL IV ONE ×2 (04:51→18:29)
[2025-10-03] MEDS: ACCU-CHEK COMFORT CURVE STRIP VI SCH (06:07)
[2025-10-03] MEDS: InsuLIN REG 1unit/0.01ml Soln (100units/ml) SC SCH (06:09)
[2025-10-03] MEDS: LORazepam 2MG/ML-1ML VIAL IV ONE (08:10)
[2025-10-03] MEDS: KETOROLAC TROMETH 30 MG/ML 1ML VIAL IV ONE (08:10)
--- NOTE | 2025-10-03 08:26 | DVH ---
CLINICAL HISTORY: ABDOMINAL PAIN WITH NAUSEA. TECHNIQUE: CT of the abdomen and pelvis was performed without IV contrast. This exam was performed according to our departmental dose optimization program. Up-to-date CT equipment and radiation dose reduction techniques are utilized as appropriate. CTDI 28 DLP 1532 COMPARISON: CT CT AB PEL WO CON-NO ORAL OR IV on DOS: 10/27/23, CT ABD/PEL on DOS: 09/27/23 FINDINGS: Abdomen/Pelvis: The spleen, pancreas, adrenal glands, and kidneys are grossly unremarkable. The bladder is decompressed by Nichole catheter. The liver is cirrhotic in morphology with nodular contour. There are extensive uterine fibroids. The gallbladder is absent. The abdominal aorta is normal in caliber with mild atherosclerotic calcifications. There is no free intraperitoneal air or fluid. There is no enlarged abdominal pelvic lymph node. There is no bowel wall thickening or dilatation. The appendix is normal. Other: The imaged lower thorax demonstrates extensive LAD distribution coronary artery calcifications. There are mild atelectatic change at both lung bases. No acute osseous abnormality is evident. There is an posterior L4-L5 fusion surgery. Impression: No acute noncontrast CT abnormality in the abdomen/pelvis. Cirrhotic liver morphology. Uterine fibroids. Cholecystectomy.
[2025-10-03 08:34] LABS: Hematocrit 43.7 % (36.0-46.0); Hemoglobin 14.1 g/dL (12.2-16.2); Mean Corpuscular Hemoglobin 28.1 pg (28.0-32.0); Mean Corpuscular Volume 86.9 fL (80.0-100.0); Nucleated Red Blood Cells % 0.2 %
[2025-10-03] MEDS: HYDROmorphone HCL 2 MG/ML VL/or syr IV ONE (09:09)
[2025-10-03 09:24] LABS: Alanine Aminotransferase 23 U/L (7-40); Anion Gap 14 (5-15); BUN/Creatinine Ratio 16.7 (10.0-20.0); Blood Urea Nitrogen 13 mg/dL (9-23); Calcium 9.1 mg/dL (8.7-10.4); Carbon Dioxide 23 mmol/L (20-31); Chloride 104 mmol/L (98-107); Potassium 4.1 mmol/L (3.5-5.1); Sodium 141 mmol/L (136-145); Total Protein 7.4 g/dL (5.7-8.2)
[2025-10-03 09:25] LABS: Albumin 3.8 g/dL (3.2-4.8); Bilirubin, Total 0.5 mg/dL (0.2-1.0)
[2025-10-03 09:28] LABS: Alkaline Phosphatase 173 U/L (46-116); Glucose 173 mg/dL (74-106)
[2025-10-03] MEDS ORDERED: LISINOPRIL 20 MG TAB PO SCH (10:00)
[2025-10-03] MEDS: METOPROLOL SUCCINATE XL 50 MG TAB PO SCH (10:22)
[2025-10-03] MEDS: ENOXAPARIN SOD 40 MG/0.4 ML SYRINGE SC SCH (10:24)
[2025-10-03] MEDS: PROCHLORPERAZINE EDISYLATE 5 MG/ML 2ML VIAL IV ONE (10:24)
[2025-10-03] MEDS: FUROSEMIDE 20 MG/2 ML VIAL IV SCH (10:24)
[2025-10-03] MEDS: PANTOPRAZOLE 40 MG/10 ML VIAL INJ IV ONE (11:18)
[2025-10-03] MEDS: HYDROcodone-ACET 5/325MG TAB PO PRN (11:18)
--- NOTE | 2025-10-03 11:44 | DVHPN2 ---
Reviewed: Care Plan, H&P, Labs, Medications, Previous Orders, Radiology Changes from previous H/P or p: No Changes Eyes: No Pain, No Vision change, No Conjunctivae inflammation, No Eyelid inflammation, No Other, No Redness ENT: No Ear pain, No Ear discharge, No Nose pain, No Nose discharge, No Nose congestion, No Mouth pain, No Mouth swelling, No Throat pain, No Throat swelling, No Other Cardiovascular: No Chest Pain, No Palpitations, No Orthopnea, No Paroxysmal Noc. Dyspnea, No Edema, No Lt Headedness, No Other Respiratory: No Cough, No Dry, No Shortness of breath, No SOB with excertion, No Wheezing, No Hemoptysis, No Pleuritic Pain, No Sputum; Other (Mild crackles bilateral basal area lungs) Gastrointestinal: Nausea; No Vomiting; Abdominal Pain; No Diarrhea, No Constipation, No Melena, No Hematochezia, No Other Genitourinary: Dysuria; No Frequency, No Incontinence, No Hematuria, No Retention; Other (Lower back pain) Musculoskeletal: No other, No neck pain, No shoulder pain, No arm pain, No back pain, No hand pain, No leg pain, No foot pain Skin: No Rash, No Lesions, No Jaundice, No Bruising, No Other Objective Vitals Vital Signs Date Time Temp Pulse Resp B/P (MAP) Pulse Ox O2 Delivery O2 Flow Rate FiO2 10/03/25 10:24 202/95 10/03/25 10:22 97 10/03/25 10:00 26 100 10/03/25 09:34 Nasal Cannula* 2 28 10/03/25 08:05 97.9 97.9 Medications Current Medications Medications Dose Ordered Sig/Graham Route Start Time Stop Time Status Last Admin Dose Admin Ondansetron HCl 4 mg Q4HP PRN IV 10/02/25 20:45 10/03/25 08:13 4 MG Enoxaparin Sodium 40 mg DAILY SC 10/03/25 10:00 10/03/25 10:24 40 MG Acetaminophen 650 mg Q6HP PRN PO 10/02/25 20:45 Nitroglycerin 0.4 mg Q5MINP PRN SL 10/02/25 20:45 Morphine Sulfate 2 mg Q30M PRN IV 10/02/25 20:45 Hold Atorvastatin Calcium 40 mg HS PO 10/02/25 22:00 Metoprolol Succinate 50 mg DAILY PO 10/03/25 10:00 10/03/25 10:22 50 MG Furosemide 20 mg DAILY IV 10/03/25 10:00 10/03/25 10:24 20 MG Gabapentin 100 mg TID PO 10/02/25 22:00 Trazodone HCl 100 mg HS PO 10/03/25 22:00 Diagnostic Test (Pha) 1 strip ACHS 10/03/25 07:00 10/03/25 06:07 1 STRIP Insulin Human Regular ACHS SC 10/03/25 07:00 Dextrose 50 ml UD PRN IV 10/02/25 22:45 Lisinopril 40 mg DAILY PO 10/03/25 04:45 Acetaminophen/ Hydrocodone Bitart 1 tab Q4HPRN PRN PO 10/03/25 11:00 10/03/25 11:18 1 TAB Pantoprazole Sodium 40 mg DAILY IV 10/04/25 10:00 Laboratory Results Laboratory Tests 10/03/25 07:20 10/03/25 08:15 Chemistry Test 10/02/25 17:13 10/03/25 07:20 Calcium Level 9.3 mg/dL (8.7-10.4) 9.1 mg/dL (8.7-10.4) Albumin 3.8 g/dL (3.2-4.8) Total Protein 7.4 g/dL (5.7-8.2) Lipid panel Test 10/03/25 07:20 Cholesterol Level Pending HDL Cholesterol Pending Triglycerides Level Pending Cardiac Markers Test 10/02/25 17:13 B-Type Natriuretic Peptide 44.07 pg/mL (0-100) LFT Test 10/03/25 07:20 Alanine Aminotransferase (ALT) 23 U/L (7-40) Alkaline Phosphatase 173 U/L (46-116) H Aspartate Amino Transferase (AST) 40 U/L (13-40) Total Bilirubin 0.5 mg/dL (0.2-1.0) HgA1c, TSH Test 10/03/25 07:20 Hemoglobin A1c Pending Thyroid Stimulating Hormone (TSH) 0.31 uIU/mL (0.55-4.78) L Urinalysis Test 10/02/25 17:26 Urine Color Yellow (Yellow) Urine Clarity Clear (Clear) Urine pH 7.5 (5.0-9.0) Urine Specific [place] 1.017 (1.001-1.035) Urine Protein Negative (Negative) Urine Ketones Negative (Negative) Urine Blood Negative /uL (Negative) Urine Nitrite Negative (Negative) Urine Bilirubin Negative (Negative) Urine Urobilinogen 3 mg/dL (Negative) H Urine Leukocyte Esterase Negative /uL (Negative) Urine RBC <1 /hpf (0 - 4) Urine Microscopic WBC 1 /HPF (0-5) Urine Squamous Epithelial Cells None seen /hpf (<5) Urine Bacteria None seen /hpf (None Seen) Urine Glucose Normal mg/dL (Normal) Labs and/or images reviewed: Labs reviewed by me, Image(s) reviewed by me Assessment/Plan Assessment/Plan Acute diastolic/systolic congestive heart heart failure Hypertensive heart disease Hyperlipidemia Type 2 diabetes mellitus: Insulin sliding scale Chronic pain syndrome [place] Fibromyalgia Low-back pain Dysuria likely urinary tract infection H/o spinal surgery secondary to spinal stenosis Gait instability Alcohol use disorder Insomnia/depression Spent 70 minutes Advanced care planning time 20 minutes Patient is full code Plan discussed with: Patient My Orders Orders - MARLYN SAWYER MD Procedure Category Date Status Time Hydrocodone-Acet PHA 10/03/25 In Process 5/325mg Tab ([place] 11:00 Pantoprazole PHA 10/04/25 In Process (Protonix) 10:00 Date of Service: Oct 03, 2025 Billing Provider: MARLYN SAWYER MD Common Visit Codes: [id number] CARE 30-74 MIN MARLYN SAWYER MD Oct 03, 2025 11:44
[2025-10-03 12:00] VITALS: TEMP 98
[2025-10-03 12:42] LABS: Triglycerides 84 mg/dL (< 150)
[2025-10-03 12:44] LABS: Cholesterol 118 mg/dL (< 200)
[2025-10-03 12:58] LABS: Creatine Kinase IFCC 190 U/L (34-145); HDL Cholesterol 38 mg/dL (40-59)
[2025-10-03 14:17] LABS: COVID19 ANTIGEN SOFIA FIA NEGATIVE (NEGATIVE)
[2025-10-03] MEDS: DOCUSATE SOD 100 MG CAP PO PRN (15:05)
[2025-10-03 15:40] VITALS: PULSE 83; RESP 36; O2SAT 98
[2025-10-03] MEDS: LABETALOL HCL 20 MG/4 ML VL IV ONE (16:15)
[2025-10-03 18:04] VITALS: BP 196/92; PULSE 86; RESP 20; O2SAT 99
--- NOTE | 2025-10-03 19:04 | DVHSR ---
APPROVED REPORT EXAM: Two-dimensional and M-mode echocardiogram with Doppler and color Doppler. Blood Pressure: 180/85 mmHg INDICATION history of chf RISK FACTORS Obesity: Height: 5'11, Weight: 280 DIMENSIONS LVDd 4.0 (3.8-5.7cm) LA (2D) 3.8 (1.9-4.0cm) Aortic Root 3.0 (2.0-3.7cm) LVDs 2.8 (2.5-4.0cm) LA (MM) (1.9-4.0cm) Aortic Cusp Exc 1.4 (1.5-2.0cm) EF (%) 55.0 (55-70%) Rt. Atrium 3.9 (1.9-4.0cm) Asc. Aorta cm IVSd 1.0 (0.7-1.1cm) RV (D) (1.8-2.4cm) PWd 0.9 (0.7-1.1cm) Mitral Valve Mitral Mitral Stenosis E wave 0.74m/s MV Mean GR. mmHg A wave 0.92m/s MV Peak GR. 29mmHg E/A ratio 0.8 2D MVA cm2 DECEL Time 162ms PRESS 1/2 Time ms Aortic Valve Aortic Valve Aortic Stenosis V1 1.31m/s AO Mean GR. 12mmHg V2 2.19m/s AO Peak GR. 19mmHg LVOT Diameter 2.0 (1.8-2.4cm) Doppler MARCIA 1.88cm2 Pulmonic Valve V2 1.35m/s Tricuspid Valve TR Velocity 1.87m/s RVSP 14mmHg Other Information Quality : Technically Limited Rhythm : Technically limited study due to patient position.body habitus. Conclusion Technically good study sinus rhythm. Concentric LVH. Valves are normal. EF of 60% with normal RV function. Doppler is unremarkable. No pericardial effusion masses or vegetations.
--- NOTE | 2025-10-04 08:15 | DVHDS2 ---
Discharge Summary Date of Admission Oct 02, 2025 at 20:43 Date of Discharge: Oct 03, 2025 Admitting Diagnosis Shortness of breath Wounds: None Labs/Diagnostic Data: Laboratory Results Test 10/03/25 17:20 10/03/25 08:15 10/03/25 08:00 10/03/25 07:20 POC Glucose 148 mg/dl (70-106) White Blood Count 7.0 10^3/uL (4.4-10.8) Red Blood Count 5.03 10^6/uL (4.0-5.20) Hemoglobin 14.1 g/dL (12.2-16.2) Hematocrit 43.7 % (36.0-46.0) Mean Corpuscular Volume 86.9 fL (80.0-100.0) Mean Corpuscular Hemoglobin 28.1 pg (28.0-32.0) Mean Corpuscular Hemoglobin Concent 32.3 g/dL (32.0-36.0) Red Cell Distribution Width 15.4 % (11.8-14.3) Platelet Count 153 10^3/uL (140-450) Mean Platelet Volume 8.3 fL (6.9-10.8) Neutrophils (%) (Auto) 72.5 % (37.0-80.0) Lymphocytes (%) (Auto) 21.6 % (10.0-50.0) Monocytes (%) (Auto) 5.7 % (0.0-12.0) Eosinophils (%) (Auto) 0.0 % (0.0-7.0) Basophils (%) (Auto) 0.2 % (0.0-2.0) Neutrophils # (Auto) 5.1 10 ^3/uL (1.6-8.6) Lymphocytes # (Auto) 1.5 10 ^3/uL (0.4-5.4) Monocytes # (Auto) 0.4 10 ^3/uL (0-1.3) Eosinophils # (Auto) 0 10 ^3/uL (0-0.8) Basophils # (Auto) 0 10 ^3/uL (0-0.2) Nucleated Red Blood Cells 0.2 % SARS-CoV-2 Antigen (Rapid) Negative (NEGATIVE) Sodium Level 141 mmol/L (136-145) Potassium Level 4.1 mmol/L (3.5-5.1) Chloride Level 104 mmol/L (98-107) Carbon Dioxide Level 23 mmol/L (20-31) Anion Gap 14 (5-15) Blood Urea Nitrogen 13 mg/dL (9-23) Creatinine 0.78 mg/dL (0.550-1.02) Glomerular Filtration Rate Calc 86 mL/min (>90) BUN/Creatinine Ratio 16.7 (10.0-20.0) Serum Glucose 173 mg/dL (74-106) Hemoglobin A1c 6.3 % A1C (<5.7) Calcium Level 9.1 mg/dL (8.7-10.4) Total Bilirubin 0.5 mg/dL (0.2-1.0) Aspartate Amino Transferase (AST) 40 U/L (13-40) Alanine Aminotransferase (ALT) 23 U/L (7-40) Alkaline Phosphatase 173 U/L (46-116) Creatine Kinase 190 U/L (34-145) Total Protein 7.4 g/dL (5.7-8.2) Albumin 3.8 g/dL (3.2-4.8) Triglycerides Level 84 mg/dL (< 150) Cholesterol Level 118 mg/dL (< 200) LDL Cholesterol 74 mg/dL (< 100) HDL Cholesterol 38 mg/dL (40-59) Vitamin B12 Level 776 pg/mL (211-911) Vitamin D 25-Hydroxy 85.8 ng/mL (30.0-100) Thyroid Stimulating Hormone (TSH) 0.31 uIU/mL (0.55-4.78) Test 10/02/25 19:54 10/02/25 17:47 10/02/25 17:26 10/02/25 17:13 Troponin I High Sensitivity 5 ng/L (</=34) Plasma/Serum Blood Alcohol < 3.0 mg/dL (<10) Urine Color Yellow (Yellow) Urine Clarity Clear (Clear) Urine pH 7.5 (5.0-9.0) Urine Specific [place] 1.017 (1.001-1.035) Urine Protein Negative (Negative) Urine Ketones Negative (Negative) Urine Blood Negative /uL (Negative) Urine Nitrite Negative (Negative) Urine Bilirubin Negative (Negative) Urine Urobilinogen 3 mg/dL (Negative) Urine Leukocyte Esterase Negative /uL (Negative) Urine RBC <1 /hpf (0 - 4) Urine Microscopic WBC 1 /HPF (0-5) Urine Squamous Epithelial Cells None seen /hpf (<5) Urine Bacteria None seen /hpf (None Seen) Urine Glucose Normal mg/dL (Normal) Lactic Acid Level 1.4 mmol/L (0.4-2.0) B-Type Natriuretic Peptide 44.07 pg/mL (0-100) Other Laboratory Tests 10/03/25 08:15 10/03/25 07:20 Brief Hx & Hospital Course: 64-year-old female with a history of hypertension diabetes hypercholesterolemia chronic pain fibromyalgia history of spine surgery secondary to spinal stenosis chronic alcohol abuse insomnia depression came in for shortness of breaths found to have acute exacerbation of congestive heart failure. Treated per protocol. Echocardiogram 60 percent ejection fraction Cardiology consult for Dr. Ng, but patient left AMA before being seen by washing machine repairer She left AMA from the emergency room Consequences and complications including possible explained to the patient and she verbalized understanding General condition satisfactory at the time of leaving AMA per nurse's note Consults/Reason for consult Cardiology Dr. Ng Operations or Procedures None Condition at Discharge: Fair Final Diagnosis/Problems List Acute diastolic/systolic congestive heart heart failure Hypertensive heart disease Hyperlipidemia Type 2 diabetes mellitus: Insulin sliding scale Chronic pain syndrome [place] Fibromyalgia Low-back pain Dysuria likely urinary tract infection H/o spinal surgery secondary to spinal stenosis Gait instability Alcohol use disorder Insomnia/depression Discharge Disposition: AMA Discharge Instruct/Medications Scheduled Amlodipine Besylate (Amlodipine Besylate), 10 MG PO DAILY, (Reported) Atenolol (Atenolol), 50 MG PO BID, (Reported) Citalopram Hydrobromide (Citalopram Hydrobromide), 40 MG PO DAILY, (Reported) Diclofenac Sodium (Topical) (Arthritis Pain Reliever), 1 % EX BID, (Reported) Doxycycline (Monohydrate) (Doxycycline), 100 MG PO BID Estrogens, Conjugated (Premarin Tablet), 0.45-1.5 MG PO HS, (Reported) Fluticasone Propionate (Nasal) (Fluticasone Propionate Na), 50 MCG NA BID, (Reported) Gabapentin (Gabapentin), 2 CAP PO TID, (Reported) Hydrocodone-Acetaminophen ([place] 10/325MG), 1 TAB PO TID, (Reported) Lisinopril (Lisinopril), 10 MG PO BID, (Reported) Loratadine (Loratadine), 10 MG PO DAILY, (Reported) Metformin Hydrochloride (Metformin Hcl), 1,000 MG PO BID, (Reported) Metoprolol Tartrate (Lopressor), 25 MG PO Q12HR, (Reported) Morphine Sulfate (Morphine Sulfate Cr), 30 MG PO BID, (Reported) Morphine Sulfate (Morphine Sulfate), 1 TAB PO Q8HPRN, (Reported) Naproxen (Naproxen), 500 MG PO BID, (Reported) Omeprazole (Omeprazole Dr), 40 MG PO DAILY, (Reported) Simvastatin (Simvastatin), 40 MG PO HS, (Reported) Scheduled PRN Carisoprodol (Carisoprodol), 350 MG PO TIDP PRN for FOR MUSCLE SPASM, (Reported) Ibuprofen (Ibuprofen), 800 MG PO Q6HP PRN for MODERATE PAIN, (Reported) Trazodone Hcl (Trazodone Hcl), 100 MG PO HS PRN for FOR INSOMNIA, (Reported) Zolpidem Tartrate (Zolpidem Tartrate), 5 MG PO HS PRN for FOR INSOMNIA, (Reported) 39 (Time taken for discharge summary 39 minutes) Discharge Statement: "Patient was advised to return to the ER or call 911 if any headaches, dizziness, shortness of breath, chest pain, abdominal pain, bleeding, fevers, or worsening of medical condition. Patient was counseled about treatment plan, medications, possible side effects, patientverbalized understanding. All questions were answered to the best of my ability. This discharge took greater then 30 minutes in planning, reviewing documentation, counseling the patient, and discussing with other team members." ASSESSMENT ASSESSMENT Hospital Course Left AMA Assessment Date of Service: Oct 04, 2025 Billing Provider: MARLYN SAWYER MD Common Visit Codes: [id number] DISCH DAY >30min MARLYN SAWYER MD Oct 04, 2025 08:15
[2025-10-04] MEDS ORDERED: PANTOPRAZOLE 40 MG/10 ML VIAL INJ IV SCH (10:00)
== END 2025-10-03 18:52 | disposition left against medical advice (07) | DRG 194 ==
LOC: ER 15:08 → EDBD 15:08 → OVERFLOW 20:43
PROVIDERS: ADMIT Family Medicine; ATTEND Family Medicine
DX: I11.0 Hypertensive heart disease with heart failure (principal); E11.9 Type 2 diabetes mellitus without complications; N39.0 Urinary tract infection, site not specified; I50.43 Acute on chronic combined systolic (congestive) and diastolic (congestive) heart failure; F10.10 Alcohol abuse, uncomplicated; F32.A Depression, unspecified; Z20.822 Contact with and (suspected) exposure to COVID-19; M79.7 Fibromyalgia; G89.4 Chronic pain syndrome; R26.89 Other abnormalities of gait and mobility; G47.00 Insomnia, unspecified; Z53.29 Procedure and treatment not carried out because of patient's decision for other reasons; E78.00 Pure hypercholesterolemia, unspecified; Z88.1 Allergy status to other antibiotic agents; Z88.5 Allergy status to narcotic agent; Z90.49 Acquired absence of other specified parts of digestive tract; Y90.0 Blood alcohol level of less than 20 mg/100 ml
CPT/HCPCS: 36415; 71045; 74176; 80048; 80053; 80061; 80320; 81001; 82306; 82550; 82607; 82962; 83036; 83605; 83880; 84443; 84484; 85025; 87040; 87086; 87426; 93306; 96374; 96375; G0378; J1815; J1885; J2405; J2470